=== PATIENT | female | born 1955 | race Caucasian/White ===

== ENCOUNTER → 2016-09-09 | Outpatient (REF) | payer OTHER ==
[2016-09-09 17:15] LABS: ALBUMIN 4.2 GM/DL (3.2-5.2); ALBUMIN/GLOBULIN RATIO 1.27 (1.00-1.93); ALKALINE PHOSPHATASE 65 U/L (45-117); ALT/SGPT 25 U/L (12-78); ANION GAP 10 MEQ/L (8-16); AST/SGOT 22 U/L (15-37); BILIRUBIN,TOTAL 0.6 MG/DL (0.2-1.0); BLOOD UREA NITROGEN 24 MG/DL (7-18); CALCIUM LEVEL 8.9 MG/DL (8.8-10.2); CARBON DIOXIDE LEVEL 28 MEQ/L (21-32); CHLORIDE LEVEL 101 MEQ/L (98-107); CHOLESTEROL LEVEL 272 MG/DL (<200); CREATININE FOR GFR 0.83 MG/DL (0.55-1.02); GLOMERULAR FILTRATION RATE > 60.0 (>45); GLUCOSE, FASTING 84 MG/DL (80-110); POTASSIUM SERUM 4.1 MEQ/L (3.5-5.1); SODIUM LEVEL 139 MEQ/L (136-145); TOTAL PROTEIN 7.5 GM/DL (6.4-8.2); TRIGLYCERIDES LEVEL 45 MG/DL (<150)
== END ==
LOC: M LAB REF 16:10
PROVIDERS: ATTEND Family Medicine
DX: Z00.00 Encounter for general adult medical examination without abnormal findings (principal); R00.2 Palpitations; I10 Essential (primary) hypertension

== ENCOUNTER → 2018-07-19 | Outpatient (REF) | payer OTHER ==
[2018-07-19 14:04] LABS: BASO # 0.1 10^3/uL (0.0-0.2); BASO % 1.3 % (0.0-1.0); EOS # 0.1 10^3/uL (0.0-0.50); EOS % 2.6 % (0.0-3.0); HEMATOCRIT 37.4 % (36.0-47.0); HEMOGLOBIN 12.3 g/dl (12.0-15.5); LYMPH # 1.6 10^3/uL (1.5-4.5); LYMPH % 39.8 % (24.0-44.0); MEAN CORPUSCULAR HEMOGLOBIN 31.5 pg (27.0-33.0); MEAN CORPUSCULAR HGB CONC 32.9 g/dl (32.0-36.5); MEAN CORPUSCULAR VOLUME 95.7 fl (80.0-96.0); MONO # 0.4 10^3/uL (0.0-0.8); MONO % 8.9 % (0.0-5.0); NEUTROPHILS # 1.9 10^3/uL (1.8-7.7); NEUTROPHILS % 47.4 % (36.0-66.0); PLATELET COUNT, AUTOMATED 209 10^3/uL (150-450); RED BLOOD COUNT 3.91 10^6/uL (4.00-5.40); WHITE BLOOD COUNT 3.9 10^3/uL (4.0-10.0)
[2018-07-19 14:11] LABS: ALBUMIN 3.8 GM/DL (3.2-5.2); ALBUMIN/GLOBULIN RATIO 1.41 (1.00-1.93); ALKALINE PHOSPHATASE 59 U/L (45-117); ALT/SGPT 20 U/L (12-78); ANION GAP 6 MEQ/L (8-16); AST/SGOT 14 U/L (7-37); BILIRUBIN,TOTAL 0.4 MG/DL (0.2-1.0); BLOOD UREA NITROGEN 23 MG/DL (7-18); CALCIUM LEVEL 8.6 MG/DL (8.8-10.2); CARBON DIOXIDE LEVEL 29 MEQ/L (21-32); CHLORIDE LEVEL 102 MEQ/L (98-107); CHOLESTEROL LEVEL 326 MG/DL (<200); GLOMERULAR FILTRATION RATE > 60.0 (>45); GLUCOSE, FASTING 93 MG/DL (70-100); HDL CHOLESTEROL 123 MG/DL (>40); LDL CHOLESTEROL 195 MG/DL (<100); NON-HDL-C 203 MG/DL; POTASSIUM SERUM 4.5 MEQ/L (3.5-5.1); SODIUM LEVEL 137 MEQ/L (136-145); TOTAL PROTEIN 6.5 GM/DL (6.4-8.2); TRIGLYCERIDES LEVEL 39 MG/DL (<150)
== END ==
LOC: M LABDRWAD 12:41
DX: I10 Essential (primary) hypertension (principal)

== ENCOUNTER → 2019-08-18 | Outpatient (REF) | payer MEDICARE ==
[2019-08-18 15:58] LABS: HEMATOCRIT 41.8 % (36.0-47.0); HEMOGLOBIN 13.4 g/dl (12.0-15.5); MEAN CORPUSCULAR HEMOGLOBIN 31.1 pg (27.0-33.0); MEAN CORPUSCULAR HGB CONC 32.1 g/dl (32.0-36.5); PLATELET COUNT, AUTOMATED 246 10^3/uL (150-450); RED BLOOD COUNT 4.31 10^6/uL (4.00-5.40); WHITE BLOOD COUNT 4.5 10^3/uL (4.0-10.0)
[2019-08-18 16:05] LABS: BLOOD UREA NITROGEN 21 MG/DL (7-18); CALCIUM LEVEL 8.7 MG/DL (8.8-10.2); CARBON DIOXIDE LEVEL 29 MEQ/L (21-32); CHLORIDE LEVEL 102 MEQ/L (98-107); CHOLESTEROL LEVEL 272 MG/DL (<200); CHOLESTEROL RISK RATIO 1.929 (<5); CREATININE FOR GFR 0.81 MG/DL (0.55-1.30); GLOMERULAR FILTRATION RATE > 60.0 (>45); GLUCOSE, FASTING 84 MG/DL (70-100); HDL CHOLESTEROL 141 MG/DL (>40); LDL CHOLESTEROL 118 MG/DL (<100); NON-HDL-C 131 MG/DL; POTASSIUM SERUM 4.1 MEQ/L (3.5-5.1); SODIUM LEVEL 140 MEQ/L (136-145); TRIGLYCERIDES LEVEL 63 MG/DL (<150)
== END ==
LOC: M LABDRWAD 15:19
PROVIDERS: ATTEND Physician Assistant
DX: I10 Essential (primary) hypertension (principal)

== ENCOUNTER 2019-11-22 08:31 | Emergency (ER) | payer MEDICARE ==
[~2019-11-22] VITALS: Ht 165.1 cm; Wt 56.4 kg
[2019-11-22] MEDS ORDERED: MAGN70CA PO (09:01)
[2019-11-22] MEDS ORDERED: RA M10TA PO (09:01)
[2019-11-22] MEDS ORDERED: ZYRTTAB8 PO (09:01)
[2019-11-22] MEDS ORDERED: MAGN1CAP PO (09:01)
[2019-11-22] MEDS ORDERED: CLAR10CA3 PO (09:01)
[2019-11-22] MEDS ORDERED: TRANEXAMIC ACID 100 MG/ML 10ML VIAL ONE (09:45)
[2019-11-22] MEDS ORDERED: DOXY100C37 PO (10:42)
[2019-11-22 11:16] VITALS: BP 144/102
== END 2019-11-22 12:01 | disposition home or self-care (01) ==
LOC: M ED 08:31 → EDBD 08:31 → M ED 12:01
DX: R04.0 Epistaxis (principal); Z79.899 Other long term (current) drug therapy; Z88.8 Allergy status to other drugs, medicaments and biological substances

== ENCOUNTER → 2020-11-04 | Outpatient (REF) | payer MEDICARE ==
[~2020-11-04] MED LIST: CLAR10CA3 PO; DOXY100C37 PO; MAGN1CAP PO; MAGN70CA PO; RA M10TA PO; ZYRTTAB8 PO
[2020-11-04 13:48] LABS: ALBUMIN 4.2 GM/DL (3.2-5.2); ALT/SGPT 19 U/L (12-78); BILIRUBIN,TOTAL 0.5 MG/DL (0.2-1.0); BLOOD UREA NITROGEN 16 MG/DL (7-18); CALCIUM LEVEL 8.9 MG/DL (8.8-10.2); CARBON DIOXIDE LEVEL 28 MEQ/L (21-32); CHLORIDE LEVEL 103 MEQ/L (98-107); CHOLESTEROL LEVEL 348 MG/DL (<200); CHOLESTEROL RISK RATIO 2.784 (<5); CREATININE FOR GFR 0.84 MG/DL (0.55-1.30); GLOMERULAR FILTRATION RATE > 60.0 (>45); GLUCOSE, FASTING 91 MG/DL (70-100); HDL CHOLESTEROL 125 MG/DL (>40); LDL CHOLESTEROL 210 MG/DL (<100); NON-HDL-C 223 MG/DL; POTASSIUM SERUM 3.8 MEQ/L (3.5-5.1); SODIUM LEVEL 137 MEQ/L (136-145); TOTAL PROTEIN 7.2 GM/DL (6.4-8.2); TRIGLYCERIDES LEVEL 63 MG/DL (<150)
== END ==
LOC: M LABDRWAD 12:18
PROVIDERS: ATTEND Family Medicine
DX: I10 Essential (primary) hypertension (principal); E78.5 Hyperlipidemia, unspecified; G47.00 Insomnia, unspecified

== ENCOUNTER → 2020-11-19 | Outpatient (CLI) | payer MEDICARE ==
--- NOTE | 2020-11-19 11:09 | REPMRS ---
Patient History The patient states she has not had a clinical breast exam in over a year. Patient is postmenopausal. Family history of breast cancer at age 55 in maternal cousin, breast cancer under age 50 in maternal aunt, endometrial cancer at age 50 or over in paternal grandmother, unknown cancer at age 50 or over in maternal grandfather, unknown cancer at age 40 in brother, unknown cancer at age 28 in mother. Took hormonal contraceptives for 10 years. 3D TOMOSYNTHESIS WAS PERFORMED. [facility] lifetime risk for breast cancer is 8.3%. [facility] Digital Woman Screen Mammo: November 19, 2020 - Exam #: [id number] Bilateral CC and MLO view(s) were taken. Technologist: Dianne Patel, Technologist Prior study comparison: May 14, 2014, bilateral bilat screen digital mammo, performed at [facility] ([facility]). October 25, 2008, bilateral screening mammogram, performed at [facility] ([facility]). FINDINGS: The breast tissue is heterogeneously dense. This may lower the sensitivity of mammography. There has been no change in the appearance of the mammogram from the prior studies. There is a moderate amount of residual fibroglandular tissue which is fairly symmetric. There is no interval development of dominant mass, areas of architectural distortion, or clustered microcalcification typical of malignancy. Assessment: BI-RADS/ACR category 1 mammogram. Negative Mammogram. Recommendation Routine screening mammogram in 1 year (for women over age 40). This mammogram was interpreted with the aid of an FDA-approved computer-aided dectection system. Electronically Signed By: Perry Russell MD 11/19/20 [id number]
== END ==
LOC: M WHC 10:18
PROVIDERS: ATTEND Family Medicine
DX: Z12.31 Encounter for screening mammogram for malignant neoplasm of breast (principal); Z80.3 Family history of malignant neoplasm of breast; Z80.49 Family history of malignant neoplasm of other genital organs

== ENCOUNTER → 2020-12-13 | Outpatient (CLI) | payer MEDICARE ==
--- NOTE | 2020-12-13 10:02 | REP ---
INDICATION: FELL AND HURT LEFT ANKLE COMPARISON: None. TECHNIQUE: AP, lateral, bilateral oblique views. FINDINGS: Generalized age-related changes are appreciated along with mild lateral swelling suggesting inversion injury. Ankle mortise is intact. The lateral radiograph demonstrates a small irregular cortication along the superior margin of the talus which may reflect small avulsion fracture and should be correlated clinically. Small calcaneal heel spur. IMPRESSION: Age-related degenerative changes. Cannot exclude small avulsion fracture fragment from the superior aspect of the talus identified on lateral radiograph and correlation is required. <Electronically signed by Jeff Owens > 12/13/20 [id number]
== END ==
LOC: M ADAMS 09:10
PROVIDERS: ATTEND Physician Assistant
DX: S99.912A Unspecified injury of left ankle, initial encounter (principal); W19.XXXA Unspecified fall, initial encounter; Y92.9 Unspecified place or not applicable; M77.32 Calcaneal spur, left foot

== ENCOUNTER → 2021-06-10 | Outpatient (CLI) | payer MEDICARE ==
[~2021-06-10] MED LIST changes: +DOXY-443 PO; -DOXY100C37 PO
--- NOTE | 2021-06-10 14:39 | REP ---
INDICATION: LOW BACK PAIN. COMPARISON: None. TECHNIQUE: Five views FINDINGS: There is a dextroconvex curve. There is bilateral marginal osteophytosis heaviest on the left L2-3 and on the right at L1-2. There is moderate disc space narrowing at every level particularly L5-S1. Chronic changes seen involving the imaged portion of the thoracic spine. IMPRESSION: Chronic changes as described above. <Electronically signed by Richy Perez > 06/10/21 [id number]
--- NOTE | 2021-06-10 14:59 | REP ---
INDICATION: LEFT HIP PAIN. COMPARISON: None TECHNIQUE: AP and frog-lateral views FINDINGS: There is mild to moderate asymmetric hip joint space narrowing with evidence of buttressing. There is no acute fracture, dislocation, or subluxation. Degenerative changes seen involving the left sacroiliac joint. IMPRESSION: Chronic changes as described above. <Electronically signed by Richy Perez > 06/10/21 [id number]
== END ==
LOC: M ADAMS 09:43
PROVIDERS: ATTEND Physician Assistant Medical
DX: M25.552 Pain in left hip (principal); M54.50 Low back pain, unspecified; M53.3 Sacrococcygeal disorders, not elsewhere classified; M25.78 Osteophyte, vertebrae

== ENCOUNTER → 2021-06-30 | Outpatient (REF) | payer MEDICARE ==
[2021-07-01 16:11] LABS: Lyme Disease IgG/IgM Antibodie <0.91 ISR (0.00-0.90); Lyme Disease IgM Ab Quantitati <0.80 index (0.00-0.79)
== END ==
LOC: M LABDRWAD 12:30
PROVIDERS: ATTEND Family Medicine
DX: Z13.89 Encounter for screening for other disorder (principal)

== ENCOUNTER → 2021-11-05 | Outpatient (REF) | payer MEDICARE ==
[2021-11-05 17:42] LABS: ALBUMIN 3.8 GM/DL (3.2-5.2); ALT/SGPT 31 U/L (12-78); BILIRUBIN,TOTAL 0.4 MG/DL (0.2-1.0); BLOOD UREA NITROGEN 23 MG/DL (7-18); CALCIUM LEVEL 9.2 MG/DL (8.8-10.2); CARBON DIOXIDE LEVEL 31 MEQ/L (21-32); CHLORIDE LEVEL 104 MEQ/L (98-107); CHOLESTEROL LEVEL 272 MG/DL (<200); CHOLESTEROL RISK RATIO 2.266 (<5); CREATININE FOR GFR 0.76 MG/DL (0.55-1.30); GLOMERULAR FILTRATION RATE > 60.0 (>45); GLUCOSE, FASTING 92 MG/DL (70-100); HDL CHOLESTEROL 120 MG/DL (>40); LDL CHOLESTEROL 129 MG/DL (<100); NON-HDL-C 152 MG/DL; POTASSIUM SERUM 4.5 MEQ/L (3.5-5.1); SODIUM LEVEL 139 MEQ/L (136-145); TOTAL PROTEIN 6.5 GM/DL (6.4-8.2); TRIGLYCERIDES LEVEL 115 MG/DL (<150)
== END ==
LOC: M LABDRWAD 16:45
PROVIDERS: ATTEND Family Medicine
DX: E78.5 Hyperlipidemia, unspecified (principal); I10 Essential (primary) hypertension

== ENCOUNTER → 2021-11-28 | Outpatient (CLI) | payer MEDICARE | LOC: M RAD 14:11 | PROVIDERS: ATTEND Family Medicine | DX: R35.0 Frequency of micturition (principal) ==

== ENCOUNTER → 2022-11-10 | Outpatient (REF) | payer MEDICARE ==
[2022-11-10 16:58] LABS: ALKALINE PHOSPHATASE 76 U/L (46-116); ALT/SGPT 17 U/L (7.0-40); AST/SGOT 26 U/L (<34); BILIRUBIN,TOTAL 0.6 MG/DL (0.3-1.2); BLOOD UREA NITROGEN 17 MG/DL (9-23); CARBON DIOXIDE LEVEL 30 MMOL/L (20-31); CHLORIDE LEVEL 104 MMOL/L (98-107); CHOLESTEROL LEVEL 267 MG/DL (<200); CHOLESTEROL RISK RATIO 1.89 (<5); CREATININE FOR GFR 0.76 MG/DL (0.55-1.30); GLOMERULAR FILTRATION RATE > 60.0 (>45); GLUCOSE, FASTING 85 MG/DL (74-106); HDL CHOLESTEROL 141.2 MG/DL (>40); LDL CHOLESTEROL 119.6 MG/DL (<100); NON-HDL-C 125.8 MG/DL; POTASSIUM SERUM 4.6 MMOL/L (3.5-5.1); SODIUM LEVEL 140 MMOL/L (136-145); THYROID STIMULATING HORMONE 1.803 uIU/ML (0.55-4.78); TOTAL PROTEIN 6.4 G/DL (5.7-8.2); TRIGLYCERIDES LEVEL 31 MG/DL (<150)
== END ==
LOC: M LABDRWAD 12:48
PROVIDERS: ATTEND Family Medicine
DX: E78.5 Hyperlipidemia, unspecified (principal); I10 Essential (primary) hypertension; R63.5 Abnormal weight gain

== ENCOUNTER → 2023-11-19 | Outpatient (REF) | payer MEDICARE ==
[2023-11-19 13:18] LABS: ALBUMIN 3.8 G/DL (3.2-5.2); ALKALINE PHOSPHATASE 61 U/L (46-116); ALT/SGPT 20 U/L (7.0-40); AST/SGOT 20 U/L (<34); BILIRUBIN,TOTAL 0.6 MG/DL (0.3-1.2); BLOOD UREA NITROGEN 23 MG/DL (9-23); CALCIUM LEVEL 9.1 MG/DL (8.3-10.6); CARBON DIOXIDE LEVEL 30 MMOL/L (20-31); CHLORIDE LEVEL 106 MMOL/L (98-107); CHOLESTEROL LEVEL 248 MG/DL (<200); CHOLESTEROL RISK RATIO 1.99 (<5); CREATININE FOR GFR 0.84 MG/DL (0.55-1.30); GLOMERULAR FILTRATION RATE > 60.0 (>39); GLUCOSE, FASTING 85 MG/DL (74-106); HDL CHOLESTEROL 124.1 MG/DL (>40); LDL CHOLESTEROL 113.3 MG/DL (<100); NON-HDL-C 123.9 MG/DL; POTASSIUM SERUM 4.5 MMOL/L (3.5-5.1); SODIUM LEVEL 140 MMOL/L (136-145); TOTAL PROTEIN 6.3 G/DL (5.7-8.2); TRIGLYCERIDES LEVEL 53 MG/DL (<150)
[2023-11-19 13:19] LABS: THYROID STIMULATING HORMONE 1.778 uIU/ML (0.55-4.78)
== END ==
LOC: M LABDRWAD 12:24
PROVIDERS: ATTEND Family Medicine
DX: E78.5 Hyperlipidemia, unspecified (principal); I10 Essential (primary) hypertension

== ENCOUNTER → 2024-07-31 | Outpatient (CLI) | payer MEDICARE ==
[~2024-07-31] MED LIST changes: +DOXY-441 PO; -DOXY-443 PO
== END ==
LOC: M EKG 12:46
PROVIDERS: ATTEND Registered Nurse
DX: R42 Dizziness and giddiness (principal); R53.1 Weakness

== ENCOUNTER → 2024-09-22 | Outpatient (CLI) | payer MEDICARE | LOC: M CARPUL 13:02 | PROVIDERS: ATTEND Registered Nurse | DX: I08.0 Rheumatic disorders of both mitral and aortic valves (principal) ==

== ENCOUNTER 2024-10-17 14:21 | Emergency (ER) | payer MEDICARE ==
[~2024-10-17] VITALS: Ht 162.6 cm; Wt 53.5 kg
[2024-10-17 17:01] VITALS: BP 152/84; TEMP 97.1; O2SAT 98
== END 2024-10-17 18:32 | disposition home or self-care (01) ==
LOC: M ED 14:21
DX: S00.11XA Contusion of right eyelid and periocular area, initial encounter (principal); X58.XXXA Exposure to other specified factors, initial encounter; Y92.9 Unspecified place or not applicable; Y93.K1 Activity, walking an animal; Y99.9 Unspecified external cause status; M47.812 Spondylosis without myelopathy or radiculopathy, cervical region; Z79.899 Other long term (current) drug therapy; Z88.8 Allergy status to other drugs, medicaments and biological substances

== ENCOUNTER → 2024-11-06 | Outpatient (REF) | payer MEDICARE ==
[2024-11-06 18:48] LABS: ALBUMIN 3.7 G/DL (3.2-5.2); BILIRUBIN,TOTAL 0.5 MG/DL (0.3-1.2); CALCIUM LEVEL 9.5 MG/DL (8.3-10.6); CHOLESTEROL RISK RATIO 2.49 (<5); CREATININE FOR GFR 1.08 MG/DL (0.55-1.30); GLOMERULAR FILTRATION RATE 53.2 (>39); LDL CHOLESTEROL 139.6 MG/DL (<100); POTASSIUM SERUM 4.2 MMOL/L (3.5-5.1); THYROID STIMULATING HORMONE 1.46 uIU/ML (0.55-4.78); TOTAL PROTEIN 6.4 G/DL (5.7-8.2)
== END ==
LOC: M LABDRWAD 17:01
PROVIDERS: ATTEND Family Medicine
DX: E78.5 Hyperlipidemia, unspecified (principal); I10 Essential (primary) hypertension

== ENCOUNTER 2025-08-01 11:23 | Emergency (ER) | payer MEDICARE ==
[~2025-08-01] VITALS: Ht 162.6 cm; Wt 53.2 kg
[~2025-08-01 11:23] MED LIST changes: +MELA10TA30 PO; -RA M10TA PO
[2025-08-01 13:14] VITALS: TEMP 95.5; O2SAT 100
[2025-08-01 13:18] VITALS: BP 168/70
== END 2025-08-01 13:33 | disposition home or self-care (01) ==
LOC: M ED 11:23
DX: S06.0X0A Concussion without loss of consciousness, initial encounter (principal); W19.XXXA Unspecified fall, initial encounter; Y92.009 Unspecified place in unspecified non-institutional (private) residence as the place of occurrence of the external cause; Y93.9 Activity, unspecified; Y99.9 Unspecified external cause status; I25.10 Atherosclerotic heart disease of native coronary artery without angina pectoris; I10 Essential (primary) hypertension; M43.12 Spondylolisthesis, cervical region; Z79.899 Other long term (current) drug therapy; Z88.8 Allergy status to other drugs, medicaments and biological substances